=== PATIENT | male | born 1945 | race Caucasian/White ===

== ENCOUNTER 2018-10-13 09:24 | Day surgery (SDC) | payer MEDICARE, BC, SELFPAY ==
[2018-10-13] VITALS (8 sets, daily range): BP systolic 91–153; BP diastolic 51–83; PULSE 60–74; RESP 10–16; TEMP 36.4–36.8; O2SAT 94–98; BMI 30.2
--- NOTE | 2018-10-13 | PATH_ITS ---
[facility] Accession Number: [id number] . 01 Material submitted: . PART A: colon - ASCENDING COLON POLYP PART B: colon - TRANSVERSE COLON POLYP PART C: sigmoid colon - SIGMOID POLYP . 02 Diagnosis: A. Ascending Colon, Polyp, Biopsy: Tubular adenoma. . B. Transverse Colon, Polyp, Biopsy: Tubular adenoma. . C. Sigmoid Colon, Polyp, Biopsy: Tubular adenoma. [facility]/10/14/2018 . 02 Electronically signed: . Ronda Mendenhall MD, Pathologist NPI- [id number] . 01 Gross description: . Part A: ASCENDING COLON POLYP: Received in formalin is 1 fragment(s) of zavala, soft tissue measuring 0.3 x 0.2 x 0.2 cm which is entirely submitted and submitted entirely in 1 cassette(s) Part B: TRANSVERSE COLON POLYP: Received in formalin is 1 fragment(s) of zavala, soft tissue measuring 0.3 x 0.2 x 0.1 cm which is entirely submitted and submitted entirely in 1 cassette(s) Part C: SIGMOID POLYP: Received in formalin is 1 fragment(s) of zavala, soft tissue measuring 0.3 x 0.2 x 0.2 cm which is entirely submitted and submitted entirely in 1 cassette(s) /[facility] /[facility] . 02 Pathologist provided ICD-10: D12.2, D12.3, D12.5 . 02 CPT . 419501, 815968, [id number] Performed at: 01 [facility] [address], [place], [place] [id number] MD Trino Jones MD Phone: [phone] Performed at: [address] [facility] [id number], [place] [id number] MD Ronda Mendenhall MD Phone: [phone]
--- NOTE | 2018-10-13 07:49 | PM.HP.1 ---
History of Present Illness Date Patient Seen: 10/13/18 Chief complaint: [id number] Narrative: 73-year-old male here for colon cancer screening. Last colonoscopy 2008 which was normal per PCP notes. He has no active GI symptoms at present Patient History Social History household members: spouse Meds Home Medications Medication Instructions Recorded Confirmed Type aspirin 650 mg PO Q4-6H PRN 10/13/18 10/13/18 History Allergies Allergy/AdvReac Type Severity Reaction Status Date / Time No Known Allergies Allergy Uncoded 06/17/17 12:05 Exam Narrative Exam Narrative: General: Patient is overweight, not in apparent distress Cardiovascular: Regular rate and rhythm, no murmurs, rubs, or gallops; no evidence of edema; no palpable abdominal aortic aneurysm Gastrointestinal: Normoactive bowel sounds, soft, nontender, nondistended, no rebound tenderness, no hepatosplenomegaly, no evidence of hernia Assessment & Plan Assessment & Plan narrative: 73-year-old male here for repeat colon cancer screening. No alarm symptoms at present Regarding the procedure(s), the risks and potential complications, benefits, and alternatives (including not doing the procedure) were discussed with the patient. The risks include but are not limited to bleeding, splenic injury, infection, perforation which may require surgical intervention, missed lesions, and adverse reactions to sedative medicines. After a question and answer period, the patient agreed to proceed with the procedure(s) and gives informed consent.
[2018-10-13] MEDS: SODIUM CHLORIDE 0.9% 1,000 ML 70 ML IV (09:56)
--- NOTE | 2018-10-13 10:48 | PM.OP.ENDO ---
Operative Date/Time/Diagnoses Date of procedure: 10/13/18 Procedure Notes Procedure in detail: Surgeon: Ángel Dominguez MD Procedure: Colonoscopy with polypectomy Preoperative diagnosis: Colon cancer screening Postoperative diagnosis: Colon polyps x3 status post polypectomy; descending and sigmoid diverticulosis; grade 2 internal hemorrhoids Medications: Conscious sedation using 4 mg IV of Midazolam and 100 mcg IV of Fentanyl Preanesthesia Assessment An H and P was performed/updated and the Px?s ASA class is 2. The procedure was discussed in detail with the patient. The potential risks and complications including infection, bleeding, missed lesions, perforation, need for surgery in case of perforation, prolonged hospital stay, and were explained. A brief question and answer period was allotted and once all questions were answered, informed consent was obtained. The patient was brought back to the procedure room and placed on standard monitoring. The patient?s vital signs were monitored continuously throughout the entire procedure. Prior to starting, a timeout was performed to confirm the patient?s identity, allergies, medications, and procedure. Procedure in detail The patient was placed in left lateral decubitus position and once adequate sedation was obtained a OMA was performed. Perianal exam revealed skin tags. The digital rectal examination did not reveal any palpable lesions. The tip of the colonoscope was placed in the anal canal and advanced without difficulty all the way to the cecum which was identified by the appendiceal orifice and the ileocecal valve. Careful examination of all zimmer of the colon was performed with irrigation of any residual stool. In the ascending colon, there was note of a 5 mm sessile polyp which was removed by means of cold snare. Resection and retrieval was complete with minimal bleeding. In the transverse colon, there was note of a 2 mm sessile polyp which was removed by means of cold Jumbo forceps. Resection and retrieval was complete with minimal bleeding. In the sigmoid colon, there is note of a 3 mm sessile polyp which was removed by means of cold Jumbo forceps. Resection retrieval was complete with minimal bleeding. There was note of multiple medium-sized diverticula in the descending and sigmoid colon. Retroflexion was performed in the rectum which revealed grade 2 internal hemorrhoids The patient tolerated the procedure well and will be brought back to the recovery area to be discharged once criteria are met. The prep was judged to be good and adequate to identify polyps less than 5 mm. The withdrawal time was 8 minutes. The total physician intraservice time was 14 minutes. Complications There were no complications and estimated blood loss was minimal. Recommendations: Resume previous diet Continue outPx medications Follow up pathology results Repeat colonoscopy in 3 or 5 years depending on pathology results An emergency contact number was given to the patient for any complications related to the procedure
[2018-10-13] MEDS: fentaNYL 250 MCG/5 ML INJ IV (10:53)
[2018-10-13] MEDS: MIDAZOLAM 5 MG/5 ML VIAL IV (10:53)
--- NOTE | 2018-10-13 11:40 | SUR.PHASEII ---
To OPD, HOB elevated, tolerating juice well, denies nausea/discomfort. to bedside. Denies being light-headed.
== END 2018-10-13 12:00 | disposition home or self-care (01) ==
LOC: ENDO 09:29
PROVIDERS: PCP Internal Medicine; Visit Provider Internal Medicine Gastroenterology
PROC: 0DJD8ZZ Inspection of Lower Intestinal Tract, Via Natural or Artificial Opening Endoscopic (ICD-10-PCS; CPT 45378; principal; 2018-10-13 10:30)
DX: Z12.11 Encounter for screening for malignant neoplasm of colon (principal); D12.2 Benign neoplasm of ascending colon; D12.3 Benign neoplasm of transverse colon; D12.5 Benign neoplasm of sigmoid colon; K57.30 Diverticulosis of large intestine without perforation or abscess without bleeding; K64.1 Second degree hemorrhoids
CPT/HCPCS: 45385; 45380; 88305; J2250; J3010

== ENCOUNTER → 2018-10-25 10:59 | Outpatient (CLI) | payer MEDICARE, BC, SELFPAY ==
[2018-10-25 12:18] LABS: Aspartate Aminotransferase 39 IU/L (17-59); Blood Urea Nitrogen 13 mg/dL (9-20); Calcium 9.4 mg/dL (8.4-10.2); Carbon Dioxide 30 mmol/L (22-32); Chloride 102 mmol/L (98-107); Cholesterol 204 mg/dL (140-199); Estimated Glomerular Filt Rate > 60.0 mL/min (>60); Glucose 100 mg/dL (80-110); HDL Cholesterol 48 mg/dL (40-60); HEMOLYSIS < 15 (0-50); LDL Cholesterol Calculated 129 mg/dL (<100); Potassium 4.9 mmol/L (3.4-5.1); Sodium 141 mmol/L (137-145); Triglycerides 134 mg/dL (35-150)
[2018-10-25 12:48] LABS: Prostate Specific Antigen Scrn 0.231 ng/mL (0.1-4.0)
== END ==
PROVIDERS: PCP Internal Medicine; Visit Provider Internal Medicine
DX: I10 Essential (primary) hypertension (principal); N40.1 Benign prostatic hyperplasia with lower urinary tract symptoms; Z12.5 Encounter for screening for malignant neoplasm of prostate
CPT/HCPCS: 36415; 80048; 80061; 84450; G0103

== ENCOUNTER 2019-02-08 09:18 | Day surgery (SDC) | payer MEDICARE, BC, SELFPAY ==
[2019-02-08 10:17] VITALS: BP 127/82; PULSE 70; RESP 16; TEMP 36.2; O2SAT 99; BMI 29.7
[2019-02-08] MEDS: PROPARACAINE 0.5% OPHTH SOL 2 DROPS EYE-OP (10:18)
[2019-02-08] MEDS: CATARACT EYE COMPOUND (10 DROPS/SYRINGE) 3 DROPS EYE-OP (10:28)
--- NOTE | 2019-02-08 11:19 | PM.PREOP ---
Pre-operative Note Interval Note History & Physical reviewed/Exam performed by Physician: No Changes to H&P: No
--- NOTE | 2019-02-08 11:19 | PM.OP.1 ---
Operative Date/Time/Diagnoses Pre-op diagnosis: Nuclear Cataract Left eye Post-op diagnosis: same Procedure & Clinicians Surgeon: Alberto Clark Anesthesia Type: MAC +/- and Sedation Operative Notes Procedure in detail: Patient brought to the operating suite. Tetracaine drops placed in the left eye. Patient was prepped and draped in sterile manner. Wire lid speculum was placed in the eye. Betadine drops were placed on the eye. This was irrigated. Lidocaine jelly was placed on the eye. A paracentesis port was created with a side-port blade. 0.1 mL 1% preservative free lidocaine was injected into the anterior chamber. The anterior chamber was deepened with viscoelastic. 2.6 mm keratome was used to create a temporal clear corneal incision. Cystotome and Utrata forceps were used to create continuous tear capsulorrhexis. Balanced salt solution was used to hydro dissect the nucleus. The phacoemulsification handpiece was inserted and the nucleus was removed using the stop and chop technique. The irrigation aspiration handpiece was inserted and the remaining cortex was removed. Anterior chamber was deepened with viscoelastic. An Sarmiento ZCB00 intraocular lens with a power of 14.0 was injected into the capsular bag. Irrigation aspiration handpiece was inserted and the remaining viscoelastic was removed. Incision was hydrated with balanced salt solution and found to be leak free with pressure with Weck-Lesley sponges. 0.1 mL Vigamox injected anterior chamber. 0.3 mL Kenalog 10 mg was injected subconjunctivally. Lid speculum was removed. The patient left the operating room in excellent condition. Complications: none Post-operative Condition: stable Disposition: same day surgery
[2019-02-08] MEDS: PHENYLEPHRINE/LIDOCAINE VIAL (OR) 0.2 ML EYE-OP (11:34)
[2019-02-08] MEDS: CHONDROIDTIN/SOD HYALURONATE 1.05 ML SYRINGE INTRAOCULA (11:35)
[2019-02-08] MEDS: TRIAMCINOLONE 50 MG/5 ML VIAL INJ (11:35)
[2019-02-08] MEDS: LIDOCAINE JELLY 2% 5 ML 1 APPLIC TOP (11:35)
[2019-02-08] MEDS: MOXIFLOXACIN INJ 5 MG/ML VIAL EYE-OP (11:35)
[2019-02-08] MEDS: TETRACAINE 0.5% OPHTH DROPS 4 ML 2 DROPS EYE-OP (11:36)
[2019-02-08] MEDS: BALANCED SALT IRRIG SOLN NO.2 500 ML, EPINEPHrine 1 MG IRR (11:36)
[2019-02-08 11:54] VITALS: BP 126/84; PULSE 70; RESP 15; TEMP 36.3; O2SAT 96
== END 2019-02-08 12:05 | disposition home or self-care (01) ==
PROVIDERS: PCP Internal Medicine; Visit Provider Ophthalmology
PROC: (CPT 66984; principal; 2019-02-08 11:15)
DX: H25.12 Age-related nuclear cataract, left eye (principal); I10 Essential (primary) hypertension
CPT/HCPCS: 66984; J0171; J2250; J3301

== ENCOUNTER 2019-02-22 08:29 | Day surgery (SDC) | payer MEDICARE, BC, SELFPAY ==
[2019-02-22 09:01] VITALS: BP 148/87; PULSE 68; RESP 15; TEMP 36.6; O2SAT 99; BMI 29.5
[2019-02-22] MEDS: PROPARACAINE 0.5% OPHTH SOL 2 DROPS EYE-OP (09:11)
[2019-02-22] MEDS: CATARACT EYE COMPOUND (10 DROPS/SYRINGE) 3 DROPS EYE-OP (09:12)
--- NOTE | 2019-02-22 09:47 | PM.PREOP ---
Pre-operative Note Interval Note History & Physical reviewed/Exam performed by Physician: No Changes to H&P: No
--- NOTE | 2019-02-22 09:47 | PM.OP.1 ---
Operative Date/Time/Diagnoses Pre-op diagnosis: Nuclear cataract right eye Procedure & Clinicians Procedure: Cataract Surgery Same procedure as scheduled: Yes Surgeon: Alberto Clark Anesthesia Type: MAC +/- and Sedation Operative Notes Procedure in detail: Patient brought to the operating suite. Tetracaine drops placed in the right eye. Patient was prepped and draped in sterile manner. Wire lid speculum was placed in the eye. Betadine drops were placed on the eye. This was irrigated. Lidocaine jelly was placed on the eye. A paracentesis port was created with a side-port blade. 0.1 mL 1% preservative free lidocaine was injected into the anterior chamber. The anterior chamber was deepened with viscoelastic. 2.6 mm keratome was used to create a temporal clear corneal incision. Cystotome and Utrata forceps were used to create continuous tear capsulorrhexis. Balanced salt solution was used to hydro dissect the nucleus. The phacoemulsification handpiece was inserted and the nucleus was removed using the stop and chop technique. The irrigation aspiration handpiece was inserted and the remaining cortex was removed. Anterior chamber was deepened with viscoelastic. An Sarmiento ZCB00 intraocular lens with a power of 15.0 was injected into the capsular bag. Irrigation aspiration handpiece was inserted and the remaining viscoelastic was removed. Incision was hydrated with balanced salt solution and found to be leak free with pressure with Weck-Lesley sponges. 0.1 mL Vigamox injected anterior chamber. 0.3 mL Kenalog 10 mg was injected subconjunctivally. Lid speculum was removed. The patient left the operating room in excellent condition. Complications: none Post-operative Condition: stable Disposition: same day surgery
[2019-02-22] MEDS: PHENYLEPHRINE/LIDOCAINE VIAL (OR) 0.2 ML EYE-OP (10:00)
[2019-02-22] MEDS: LIDOCAINE JELLY 2% 5 ML 1 APPLIC TOP (10:00)
[2019-02-22] MEDS: TRIAMCINOLONE 50 MG/5 ML VIAL INJ (10:00)
[2019-02-22] MEDS: MOXIFLOXACIN INJ 5 MG/ML VIAL EYE-OP (10:00)
[2019-02-22] MEDS: TETRACAINE 0.5% OPHTH DROPS 4 ML 2 DROPS EYE-OP (10:01)
[2019-02-22] MEDS: CHONDROIDTIN/SOD HYALURONATE 1.05 ML SYRINGE INTRAOCULA (10:01)
[2019-02-22] MEDS: BALANCED SALT IRRIG SOLN NO.2 500 ML, EPINEPHrine 1 MG IRR (10:01)
[2019-02-22 10:20] VITALS: BP 141/81; PULSE 70; RESP 18; TEMP 36.6; O2SAT 98
== END 2019-02-22 10:29 | disposition home or self-care (01) ==
PROVIDERS: PCP Internal Medicine; Visit Provider Ophthalmology
PROC: (CPT 66984; principal; 2019-02-22 10:15)
DX: H25.11 Age-related nuclear cataract, right eye (principal); I10 Essential (primary) hypertension
CPT/HCPCS: 66984; J0171; J2250; J3301

== ENCOUNTER → 2020-04-03 14:39 | Outpatient (CLI) | payer MEDICARE, BC, SELFPAY ==
[2020-04-03] MEDS: COVID-19 VACC #1, MRNA(MOD) 100 MCG/0.5 ML VIAL IM (14:48)
== END ==
PROVIDERS: PCP Internal Medicine; Visit Provider Internal Medicine
DX: Z23 Encounter for immunization (principal)
CPT/HCPCS: 0011A; 91301

== ENCOUNTER → 2020-05-01 14:57 | Outpatient (CLI) | payer MEDICARE, BC, SELFPAY ==
[2020-05-01] MEDS: COVID-19 VACC #2, MRNA(MOD) 100 MCG/0.5 ML VIAL IM (15:06)
== END ==
PROVIDERS: PCP Internal Medicine; Visit Provider Internal Medicine
DX: Z23 Encounter for immunization (principal)
CPT/HCPCS: 0012A; 91301

== ENCOUNTER → 2020-09-20 12:37 | Outpatient (CLI) | payer MEDICARE, BC, SELFPAY ==
[2020-09-20 16:21] LABS: Prostate Specific Antigen 0.278 ng/mL (0.10-4.00)
== END ==
PROVIDERS: PCP Internal Medicine; Referring Provider Specialist; Visit Provider Specialist
DX: R30.0 Dysuria (principal); N40.1 Benign prostatic hyperplasia with lower urinary tract symptoms
CPT/HCPCS: 36415; 84153

== ENCOUNTER → 2021-05-24 10:47 | Outpatient (CLI) | payer MEDICARE, BC, SELFPAY ==
[2021-05-24 11:48] LABS: COVID19 -Nasal RAPID Negative (Negative)
--- NOTE | 2021-05-29 10:33 | PM.PFT.1 ---
Pulmonary Function Test Referral & Results Date Patient Seen: 05/24/21 Requesting provider: Wandy Barr Results: The spirometry demonstrates an FVC of 3.78 L which is 92% of predicted. The FEV1 was measured at 2.94 L which is 99% of predicted. The FEV1/FVC ratio was 78 which is 106% of predicted. Following the administration of bronchodilator there was a 52% improvement in FEF 25-75% Lung volumes show an SVC of 3.80 L which is 87% of predicted. The diffusing capacity was measured at 30.87 which is 99% of predicted. The maximum voluntary ventilation was minimally reduced Interpretation: This study demonstrates normal pulmonary function. The maybe a slight reduction maximum voluntary ventilation which in the absence of other abnormalities might suggest the presence of neuromuscular disease Clinical correlation suggested Charges Tests/bronchodilator: Complete PFT: with bronchodilator Tests: Yes Diffusing capacity
== END ==
PROVIDERS: PCP Internal Medicine; Referring Provider Internal Medicine Cardiovascular Disease; Visit Provider Internal Medicine Cardiovascular Disease
DX: R06.02 Shortness of breath (principal)
CPT/HCPCS: 87635; 94060; 94726; 94729; C9803

== ENCOUNTER → 2021-05-29 09:24 | Outpatient (CLI) | payer MEDICARE, BC, SELFPAY ==
[2021-05-29 12:08] LABS: COVID19 -Nasal RAPID Negative (Negative)
== END ==
PROVIDERS: PCP Internal Medicine; Visit Provider Nurse Practitioner Family
DX: Z20.822 Contact with and (suspected) exposure to COVID-19 (principal)
CPT/HCPCS: 87635; C9803

== ENCOUNTER → 2021-05-31 08:10 | Outpatient (CLI) | payer MEDICARE, BC, SELFPAY ==
--- NOTE | 2021-05-31 | DI.ECHO.S_ITS ---
[facility] +---------+ : : [address] : : : : [id number] : : : : Phone: [phone]+ Echocardiogram Report + + :Name: DAIRN CRONIN Study Date: 05/31/2021 Height: 70 in : :[facility] ReadingLocation: Weight: 207 lb : : Gender: Male BSA: 2.1 m2 : :: 1945 Age: 76 yrs BP: 144/88 mmHg: :Reason For Study: Murmur, Chest Pain : :Ordering Physician: Wandy : :Norma Barr Performed By: Parul Noriega : + + Interpretation Summary 1) Normal left ventricular size and thickness with low normal systolic function (EF 50-55%). 2) Inferolateral wall is hypokinetic. Endothelial border of the anterolateral wall is not well visualized but it may also be hypokinetic. 3) Normal right ventricular size and function. 4) Mild aortic stenosis present (valve area 1.7cm2, mean gradient 9mmHg). 5) No prior Echo available for comparison. Procedure: A two-dimensional transthoracic echocardiogram with color flow and Doppler was performed. The study quality was technically adequate. There is no prior echocardiogram noted for this patient. The patient was in normal sinus rhythm during the exam. Left Ventricle: The left ventricle is normal in size and wall thickness. Proximal septal thickening is noted. The ejection fraction is estimated to be 50-55%. Inferolateral wall is hypokinetic. Endothelial border of the anterolateral wall is not well visualized but it may also be hypokinetic. Diastolic parameters suggest a relaxation abnormality of the left ventricle, consistent with probable normal filling pressures. Right Ventricle: The right ventricle is normal in size and function. Atria: The left atrium is moderately dilated. Right atrial size is normal. There is no Doppler evidence for an interatrial shunt. Mitral Valve: There is mild to moderate mitral annular calcification. There is mild mitral regurgitation. Aortic Valve: There is moderate aortic valve sclerosis. The aortic valve is not well visualized. The peak aortic velocity is 1.9 m/sec. The aortic valve mean gradient is 9 mmHg. The calculated aortic valve area is 1.7 cm2. There is mild aortic stenosis. No aortic regurgitation is present. Tricuspid Valve: The tricuspid valve leaflets are thin and pliable. There is trace tricuspid regurgitation. The right ventricular systolic pressure is estimated to be at least 25 mmHg based on an estimated right atrial pressure of 3 mm Hg. Pulmonic Valve: The pulmonic valve is not well seen, but is grossly normal. Great Vessels: The aortic root is normal size. The ascending aorta is at the upper limits of normal in size. The aortic arch is normal in size. The IVC is of normal diameter and collapses greater than 50% with a sniff. This suggests a low right atrial pressure of 3 mm Hg. Pericardium/ Pleura There is no pericardial effusion. There is no pleural effusion. MMode/2D Measurements & Calculations LVIDd: 4.9 cm LVOT diam: 2.0 cm LVIDs: 3.0 cm Ao root diam: 3.0 cm FS: 38.6 % asc Aorta Diam: 3.6 cm EPSS: 0.16 cm Ao Arch Diam (Prox Trans): 2.5 cm IVSd: 0.93 cm LVPWd: 0.82 cm LV rivera. diameter/BSA (cm/m^2): 2.3 LV sys. diameter/BSA (cm/m^2): 1.4 LA A2 area: 22.7 cm2 RA long axis: 4.7 cm LA A4 area: 22.0 cm2 RA area: 14.7 cm2 LA length (vol): 5.5 cm RA vol: 38.6 ml LA vol: 76.6 ml RA : 18.2 ml/m2 LA vol index: 36.1 ml/m2 IVC diam: 1.1 cm RVD1 (basal): 3.9 cm TAPSE: 2.7 cm Doppler Measurements & Calculations Ao V2 max: 191.7 cm/sec LVOT Max Valentino: 108.4 cm/sec Ao V2 mean: 144.6 cm/sec LV V1 max P.7 mmHg Ao max P.7 mmHg LV V1 VTI: 23.3 cm Ao mean P.9 mmHg SIDDHARTHA(I,D): 1.7 cm2 Ao V2 VTI: 43.3 cm SIDDHARTHA(V,D): 1.8 cm2 sev ratio: 0.54 SIDDHARTHA indexed to BSA (cm^2/m^2): 0.81 MV E max valentino: 61.7 cm/sec TR max valentino: 234.1 cm/sec MV A max valentino: 84.5 cm/sec TR max P.9 mmHg MV E/A: 0.73 PA V2 max: 69.1 cm/sec Med Peak E' Valentino: 5.9 cm/sec PA V2 mean: 48.4 cm/sec E/E' med: 10.5 PA mean P.0 mmHg Lat Peak E' Valentino: 5.9 cm/sec PA pr(Accel): 40.5 mmHg E/E' lat: 10.5 E/e' average: 10.5 MV dec time: 0.26 sec MR PISA: 1.2 cm2 SV(LVOT): 74.6 ml MR flow rate: 45.8 cm3/sec MR PISA radius: 0.44 cm Reading Physician:12:52 PM
--- NOTE | 2021-05-31 18:45 | DI.NM.S_ITS ---
DATE OF SERVICE: 05/31/2021 PROCEDURE PERFORMED: Exercise treadmill stress test without imaging. ORDERING PROVIDER: Dr. Steve Barr. INDICATIONS: The patient is a 76-year-old male with recent exertional dyspnea and chest pressure. FINDINGS: 1. The patient was able to exercise for 6 minutes, 21 seconds on a standard Gio protocol, suggesting average exercise capacity with an REYNA of -3%, achieving 7.0 METs. 2. He had a normal heart rate response to exercise, achieving a maximum heart rate of 144 BPM (99% of his predicted maximum). He had a mild hypertensive response to exercise with a resting blood pressure of 150/88, increasing to a maximum of 208/80. 3. He had no chest discomfort or other anginal symptom although developed mild lightheadedness at peak exercise with a normal blood pressure. 4. His resting ECG shows sinus rhythm with normal ST segments. There are no significant ST-segment shifts or arrhythmias with stress although he developed occasional isolated PACs in recovery. IMPRESSION: 1. Normal exercise treadmill stress test for ischemia. 2. Average exercise capacity without angina or arrhythmias, except for occasional PACs in recovery. 3. He had a mild hypertensive blood pressure response to exercise with peak blood pressure of 208/80 with associated mild lightheadedness. AnniaGarthhoney - ANNA/jason/jose doc#: [id number]/job#: [id number] dd: 05/31/2021 17:04:00 dt: 05/31/2021 18:24:00 DICTATING MD/COPIES TO: Yohan Zimmer MD; Wandy Barr MD COPIES MNE: JOHANNA;
== END ==
PROVIDERS: PCP Internal Medicine; Referring Provider Internal Medicine Cardiovascular Disease; Visit Provider Internal Medicine Cardiovascular Disease
DX: R01.1 Cardiac murmur, unspecified (principal); I08.0 Rheumatic disorders of both mitral and aortic valves; R07.9 Chest pain, unspecified
CPT/HCPCS: 93017; 93306

== ENCOUNTER → 2021-07-24 09:24 | Outpatient (CLI) | payer MEDICARE, BC, SELFPAY ==
[2021-07-24 12:44] LABS: Alanine Aminotransferase 29 IU/L (<50); Albumin 4.4 g/dL (3.5-5.0); Albumin Globulin Ratio 1.5 (1.0-2.8); Alkaline Phosphatase 53 U/L (38-126); Aspartate Aminotransferase 41 IU/L (17-59); BUN Creatinine Ratio 13.9 (6-22); Bilirubin Total 0.7 mg/dL (0.2-1.3); Blood Urea Nitrogen 14 mg/dL (9-20); Calcium 8.9 mg/dL (8.4-10.2); Carbon Dioxide 31 mmol/L (22-32); Chloride 103 mmol/L (98-107); Cholesterol 140 mg/dL (140-199); Estimated Glomerular Filt Rate > 60 mL/min (>60); Glucose 91 mg/dL (80-110); HDL Cholesterol 48 mg/dL (40-60); HEMOLYSIS < 15 (0-50); LDL Cholesterol Calculated 65 mg/dL (<100); Potassium 4.4 mmol/L (3.4-5.1); Sodium 140 mmol/L (137-145); Total Protein 7.4 g/dL (6.3-8.2); Triglycerides 137 mg/dL (35-150)
== END ==
PROVIDERS: PCP Internal Medicine; Referring Provider Internal Medicine Cardiovascular Disease; Visit Provider Internal Medicine Cardiovascular Disease
DX: E78.5 Hyperlipidemia, unspecified (principal)
CPT/HCPCS: 36415; 80053; 80061

== ENCOUNTER → 2021-09-12 14:07 | Outpatient (CLI) | payer MEDICARE, BC, SELFPAY ==
[2021-09-13 04:04] LABS: Prostate Specific Antigen 0.243 ng/mL (0.10-4.00)
== END ==
PROVIDERS: PCP Internal Medicine; Referring Provider Specialist; Visit Provider Specialist
DX: R97.20 Elevated prostate specific antigen [PSA] (principal)
CPT/HCPCS: 36415; 84153

== ENCOUNTER → 2021-11-18 10:41 | Outpatient (CLI) | payer MEDICARE, BC, SELFPAY ==
[2021-11-18 11:24] LABS: COVID19 -Nasal RAPID Negative (Negative)
--- NOTE | 2021-11-18 17:56 | DI.NM.S_ITS ---
DATE OF SERVICE: 11/18/2021 PROCEDURE PERFORMED: Exercise perfusion study. INDICATION: Dyspnea, chest discomfort, hyperlipidemia, aortic stenosis. RADIOPHARMACEUTICAL: 25.0 millicurie technetium-99m Myoview IV was injected at stress and 12.2 millicurie technetium-99m Myoview IV was injected at rest. CARDIAC STRESS: The patient underwent exercise perfusion study under the supervision of an attending staff. The patient walked on Gio protocol for 6 minutes and 02 seconds, achieved 100 percent target heart rate. Baseline blood pressure 134/84 mmHg. Peak blood pressure 210/104 mmHg, suggestive of hypertensive blood pressure response. REYNA positive 2 percent. 7 METs of workload. Baseline rhythm was sinus. During stress, there were no convincing ischemic changes seen. Occasional PVCs. No chest discomfort. Had some shortness of breath. RAW DATA: There is increased subdiaphragmatic activity. GATED STUDY: Resting LV ejection fraction 68 and stress LV ejection fraction 70 percent. Resting end-diastolic volume 102 mL. TID ratio 0.72, which is within normal limits. Lung/heart ratio 0.27, which is within normal limits. MYOCARDIAL PERFUSION SCAN: Stress supine, resting supine and stress prone images were compared to each other. Stress supine and resting supine images revealed mild to moderate size, mildly decreased perfusion of inferior wall, inferoseptum, as well as inferoapex which got completely resolved during stress prone images, suggestive of diaphragmatic tissue attenuation artifact. CONCLUSION: This is a normal myocardial perfusion study with evidence of diaphragmatic tissue attenuation artifact, which got resolved during stress prone images. Stress prone images revealed normal myocardial perfusion. Diminished exercise tolerance. Hypertensive blood pressure response. Preserved left ventricular function. No ischemic anginal discomfort or electrocardiographic changes or significant arrhythmias. Overall low-risk myocardial perfusion scan. MikkiGarth ryanhoney - ROMMEL/jason/jose doc#: [id number]/job#: [id number] dd: 11/18/2021 17:05:00 dt: 11/18/2021 17:43:00 DICTATING MD/COPIES TO: Phoenix Bhagat MD COPIES MNE: HANNA;
== END ==
PROVIDERS: PCP Internal Medicine; Referring Provider Internal Medicine Cardiovascular Disease; Visit Provider Internal Medicine Cardiovascular Disease
DX: R06.00 Dyspnea, unspecified (principal); Z20.822 Contact with and (suspected) exposure to COVID-19
CPT/HCPCS: 78452; 87635; 93017; A9502

== ENCOUNTER → 2021-12-05 09:05 | Outpatient (CLI) | payer MEDICARE, BC, SELFPAY ==
[2021-12-05 09:42] LABS: COVID19 -Nasal RAPID Negative (Negative)
== END ==
PROVIDERS: PCP Internal Medicine; Visit Provider Surgery
DX: Z20.822 Contact with and (suspected) exposure to COVID-19 (principal); Z01.812 Encounter for preprocedural laboratory examination
CPT/HCPCS: 87635; C9803

== ENCOUNTER 2021-12-06 08:07 | Day surgery (SDC) | payer MEDICARE, BC, SELFPAY ==
[2021-12-06 08:16] VITALS: BP 157/91; PULSE 83; RESP 16; TEMP 36.4; BMI 28.0
[2021-12-06] MEDS: LACTATED RINGERS 1,000 ML 100 ML IV (08:30)
--- NOTE | 2021-12-06 08:37 | PM.HP.1 ---
History of Present Illness History of Present Illness Chief complaint: [facility] colon cancer screening Narrative: 76-year-old male with obstructive sleep apnea hypertension hyperlipidemia taking an aspirin daily presents with request for screening colonoscopy. His last colonoscopy was in 10/2018 the report was reviewed and he received 4 mg of Versed 100 of fentanyl and 3 polyps diverticula and internal hemorrhoids were seen. Currently he endorses no symptoms of bleeding he endorses occasional constipation but nothing serious. He sometimes rarely has some blood from known hemorrhoids but more often when he is constipated he feels a bulging sensation this always resolves spontaneously and really does not bother. He does not take a fiber supplement on occasion he takes a laxative because of his constipation no one has ever talked to him about fiber being important before. Patient History Medical History Bilateral hydrocele BPH w urinary obs/LUTS Excessive daytime sleepiness HTN (hypertension) Hyperlipidemia, unspecified Obstructive sleep apnea syndrome Skin cancer Surgical History H/O hernia repair Hx of circumcision Hx of vasectomy Family & Social History Social History: household members spouse Tobacco & Substance use: Smoking Status Former smoker alcohol intake current Substance Use Type does not use Meds Home Medications and Allergies Home Medications Medication Instructions Recorded Confirmed Type upzzoygvekwq-vxjbpiyw-yvrmka 1 tab PO DAILY 02/08/19 12/06/21 History tablet (Multivitamin 50 Plus tablet) rosuvastatin 5 mg tablet 5 mg PO DAILY 05/28/21 12/06/21 History aspirin 81 mg chewable tablet 81 mg PO DAILY 12/06/21 12/06/21 History Allergies Allergy/AdvReac Type Severity Reaction Status Date / Time No Known Drug Allergies Allergy Verified 12/06/21 08:03 Exam Vital Signs (past 8 hours): - 12/06/21 08:16 Temperature 97.5 F L Pulse Rate 83 Respiratory Rate 16 Blood Pressure 157/91 H Oxygen Delivery Method Room Air Oxygen Delivery Method Room Air Const General: cooperative, healthy appearing and comfortable HENMT Head: normal to inspection Neck Neck: normal visual inspection Resp Effort & Inspection: normal respiratory effort and able to speak in complete sentences Cardio Rate: regular rate GI Palpation: soft and No tender Assessment & Plan Assessment and plan (1) Screening for colon cancer: Status: Acute (2) Internal hemorrhoids: Status: Acute Plan I I spent about 10 minutes discussing the benefits of fiber for a patient like him. I think he will go ahead and try it. I also discussed the risks benefits and alternatives to screening colonoscopy he understands the risks and would like to proceed Time Spent With Patient Critical Care time: I spent a total of [] minutes of critical care time on this patient's care today; this time is exclusive of procedural time.
[2021-12-06] MEDS: fentaNYL 100 MCG/2 ML INJ IV (08:57)
[2021-12-06] MEDS: MIDAZOLAM 5 MG/5 ML VIAL 4 MG IV (08:57)
[2021-12-06 09:34] VITALS: BP 128/80; PULSE 73; RESP 16; TEMP 36.6; O2SAT 98
[2021-12-06 09:39] VITALS: BP 126/86; PULSE 75; RESP 16; O2SAT 98
[2021-12-06 09:44] VITALS: BP 125/74; PULSE 68; RESP 16; O2SAT 97
[2021-12-06 09:48] VITALS: BP 128/80; PULSE 66; RESP 14; TEMP 36.6; O2SAT 97
--- NOTE | 2021-12-06 10:01 | PM.OP.COLON ---
Procedure & Clinicians Study performed: Colonoscopy Same procedure as scheduled: Yes Surgeon: Tere Goel Procedure Notes Procedure in detail: Patient was taken to the endoscopy suite placed in a left lateral decubitus position a time-out was performed conscious sedation was induced using 4 mg of Versed and 100 of fentanyl in total. Patient was comfortable throughout the procedure. the digital rectal exam was normal the scope was introduced and advanced to the cecum some abdominal pressure was required to enter the cecum. There was a loop in the sigmoid. Upon entry large diverticula were seen throughout the sigmoid and descending colon. Photograph was taken of the appendiceal orifice and withdrawal time was 18 minutes. No additional polyps were seen. A retroflex at the end revealed internal hemorrhoids. Photograph was taken. Patient tolerated procedure well went in good condition to postoperative care unit. Findings: divertiulosis and internal hemorrhoids Specimen(s): none sent Complications: none Impression: Follow-up 10 years. Recommendation daily fiber supplement is very serious for the level of diverticulosis and internal hemorrhoids that the patient has. Post-procedure Recommendations: Colonoscopy in 10 years Disposition: PACU
== END 2021-12-06 09:58 | disposition home or self-care (01) ==
PROVIDERS: PCP Internal Medicine; Referring Provider Surgery; Visit Provider Surgery
PROC: 0DJD8ZZ Inspection of Lower Intestinal Tract, Via Natural or Artificial Opening Endoscopic (ICD-10-PCS; CPT 45378; principal; 2021-12-06 09:15)
DX: Z12.11 Encounter for screening for malignant neoplasm of colon (principal); G47.33 Obstructive sleep apnea (adult) (pediatric); I10 Essential (primary) hypertension; E78.5 Hyperlipidemia, unspecified; Z79.82 Long term (current) use of aspirin; K64.8 Other hemorrhoids; K57.30 Diverticulosis of large intestine without perforation or abscess without bleeding
CPT/HCPCS: G0121; J2250; J3010

== ENCOUNTER → 2022-07-14 10:33 | Outpatient (CLI) | payer MEDICARE, BC, SELFPAY ==
[2022-07-14 11:58] LABS: Add Manual Diff / Slide Review NO; Basophils Absolute Auto 0 /uL (0-100); Basophils Percent Auto 0.7 % (0-2); Eosinophils Absolute Auto 100 /uL (0-450); Eosinophils Percent Auto 1.7 % (2-4); Hemoglobin 14.8 g/dL (13.5-17.5); Lymphocytes Absolute Auto 1500 /uL (1100-4500); Mean Corpuscular HGB Conc 33.7 % (30-36); Mean Corpuscular Hemoglobin 33.4 PG (26-34); Mean Corpuscular Volume 99.2 fL (80-100); Monocytes Absolute Auto 500 /uL (0-900); Neutrophils Absolute Auto 3200 /uL (1500-7000); Neutrophils Percent Auto 59.6 % (50-75); Platelet Count 205 X10^3/uL (150-400); Red Blood Cell Count 4.44 X10^6/uL (4.5-5.9); Red Cell Distribution Width 13.3 % (11.6-14.8); White Blood Cell Count 5.4 X10^3/uL (4.5-11.0)
[2022-07-14 12:14] LABS: BUN Creatinine Ratio 12.8 (6-22); Blood Urea Nitrogen 12 mg/dL (9-20); Calcium 8.8 mg/dL (8.4-10.2); Carbon Dioxide 30 mmol/L (22-32); Chloride 102 mmol/L (98-107); Cholesterol 143 mg/dL (140-199); Estimated Glomerular Filt Rate > 60 mL/min (>60); Glucose 91 mg/dL (80-110); HDL Cholesterol 55 mg/dL (40-60); HEMOLYSIS < 15 (0-50); LDL Cholesterol Calculated 65 mg/dL (<100); Potassium 4.3 mmol/L (3.4-5.1); Sodium 138 mmol/L (137-145); Triglycerides 115 mg/dL (35-150)
== END ==
PROVIDERS: PCP Family Medicine; Referring Provider Internal Medicine Cardiovascular Disease; Visit Provider Internal Medicine Cardiovascular Disease
DX: E78.5 Hyperlipidemia, unspecified (principal); I25.10 Atherosclerotic heart disease of native coronary artery without angina pectoris
CPT/HCPCS: 36415; 80048; 80061; 85025

== ENCOUNTER → 2023-05-13 09:16 | Outpatient (CLI) | payer MEDICARE, BC, SELFPAY ==
--- NOTE | 2023-05-13 | DI.NM.S_ITS ---
PROCEDURE: NM ELIA PERF SPECT REST & STR Rest and exercise myocardial perfusion SPECT with gated imaging and ejection fraction RADIOPHARMACEUTICAL: 12.8 mCi Tc-99m sestamibi IV at rest and 25.4 mCi Tc-99m sestamibi IV at peak exercise. A 8-sof-ijmuvesr was performed. INDICATIONS: Nonrheumatic aortic (valve) stenosis, dyspnea TECHNIQUE: Radiopharmaceutical was injected at peak stress test, and also at rest. SPECT images were obtained. SPECT myocardial perfusion images were displayed in short axis, horizontal long axis, and vertical long axis views. Gated images were reviewed using [employer] software. COMPARISON: None. CARDIAC STRESS: A standard Gio treadmill exercise tolerance test was performed by the patient under the supervision of an attending staff. The patient exercised for 6 minutes and 0 seconds; 6.9 METS; functional aerobic impairment (REYNA) is -3% %. Hemodynamic data: There is normal blood pressure and heart rate response to exercise stress. Patient achieved 99% of maximum predicted heart rate at peak exercise. Maximum blood pressure 188/90. Symptoms: Patient denied chest pain during exercise. EKG: No diagnostic EKG changes of ischemia; no ectopy. FINDINGS: Raw data: There is good myocardial labeling by radiotracer. No significant motion artifacts. Bqsu-cl-wqeey ratio is 0.29 (normal is less than 0.38 for sestamibi tracer, and less than 0.50 for thallium tracer). Left ventricle function: Gated images demonstrate normal left ventricle wall thickening. No segmental wall motion abnormality. No transient ischemic dilation; TID is 0.79 (normal less than 1.3). The left ventricle resting end-diastolic volume is 97 mL. Left ventricle stress ejection fraction is 73%; normal values are above 45%. Myocardial perfusion: There is normal distribution of activity in the left and right ventricular myocardium. No fixed or reversible perfusion defects. IMPRESSION: Low risk study. No evidence of exercise-induced ischemia on ECG or SPECT imaging. Normal LV size and function. Normal hemodynamic response. Fair exercise capacity. Dictated by: Ida Reina D.O. on 05/13/2023 at 16:38 Approved by: Ida Reina D.O. on 05/13/2023 at 16:41
--- NOTE | 2023-05-13 | DI.ECHO.S_ITS ---
[place] [facility]---------+ [facility] +---------+ : : [address] : : : : [id number] : : : : Phone: [phone]+ Echocardiogram Report + + :Name: DARIN CRONIN Study Date: 05/13/2023 Height: 69 in : :[facility] ReadingLocation: Weight: 200 lb : : Gender: Male BSA: 2.1 m2 : :: 1945 Age: 78 yrs BP: 138/87 mmHg: :Reason For Study: AORTIC STENOSIS : :Ordering Physician: FRANSICO, : :HAYLEY Performed By: Claudia Wolf : :Referring: HOMAR BATEMAN : + + Interpretation Summary The ejection fraction is estimated to be 45-50%. Diastolic function could not be accurately assessed due to contradictory data. The left atrium is moderately dilated. The right ventricle is normal in size and function. The right atrium is mildly dilated. There is mild mitral regurgitation. There is mild aortic stenosis. Pulmonary artery pressures cannot be estimated because of the lack of a measurable TR jet velocity but the IVC suggests a CVP of around 3 mmHg. Procedure: A two-dimensional transthoracic echocardiogram with color flow and Doppler was performed. The study quality was technically adequate. Comparison is made with the echocardiogram of 05/31/2021. The patient was in sinus rhythm with heart rates between 65-75 bpm during the exam. Left Ventricle: The left ventricle is normal in size. Left ventricular wall thickness is borderline increased. The ejection fraction is estimated to be 45-50%. There is mild global hypokinesis of the left ventricle. Diastolic function could not be accurately assessed due to contradictory data. Right Ventricle: The right ventricle is normal in size and function. Atria: The left atrium is moderately dilated. The right atrium is mildly dilated. There is no Doppler evidence for an interatrial shunt. Mitral Valve: There is mild to moderate mitral annular calcification. The mitral valve leaflets appear mildly thickened, but open well. There is mild mitral regurgitation. Aortic Valve: The aortic valve is mildly calcified. There is mild aortic stenosis. The peak aortic velocity is 2.0 m/sec. The aortic valve mean gradient is 10 mmHg. The calculated aortic valve area is 1.5 cm2. No aortic regurgitation is present. Tricuspid Valve: The tricuspid valve is normal in structure and function. There is trace tricuspid regurgitation. Pulmonary artery pressures cannot be estimated because of the lack of a measurable TR jet velocity but the IVC suggests a CVP of around 3 mmHg. Pulmonic Valve: The pulmonic valve is not well seen, but is grossly normal. There is no pulmonic valvular regurgitation. Great Vessels: The aortic root is normal size. The dimensions of the ascending aorta are normal. The IVC is of normal diameter and collapses greater than 50% with a sniff. This suggests a low right atrial pressure of 3 mm Hg. Pericardium/ Pleura There is no pericardial effusion. There is no pleural effusion. MMode/2D Measurements & Calculations LVIDd: 4.6 cm LVOT diam: 2.0 cm LVIDs: 3.0 cm Ao root diam: 3.3 cm FS: 35.4 % asc Aorta Diam: 3.4 cm IVSd: 1.1 cm Ao Arch Diam (Prox Trans): 2.4 cm LVPWd: 1.0 cm LV rivera. diameter/BSA (cm/m^2): 2.2 LV sys. diameter/BSA (cm/m^2): 1.4 LA A2 area: 21.1 cm2 RA long axis: 4.9 cm LA A4 area: 17.5 cm2 RA area: 15.3 cm2 LA length (vol): 5.2 cm RA vol: 40.8 ml LA vol: 59.8 ml RA : 19.8 ml/m2 LA vol index: 28.9 ml/m2 IVC diam: 1.4 cm RVD1 (basal): 3.6 cm RVD2 (mid): 2.9 cm TAPSE: 2.1 cm Doppler Measurements & Calculations Ao V2 max: 201.2 cm/sec LVOT Max Valentino: 95.4 cm/sec Ao V2 mean: 144.0 cm/sec LV V1 max P.6 mmHg Ao max P.3 mmHg LV V1 VTI: 20.3 cm Ao mean P.6 mmHg SIDDHARTHA(I,D): 1.6 cm2 Ao V2 VTI: 42.1 cm SIDDHARTHA(V,D): 1.5 cm2 sev ratio: 0.48 SIDDHARTHA indexed to BSA (cm^2/m^2): 0.75 MV E max valentino: 64.9 cm/sec PA V2 max: 97.6 cm/sec MV A max valentino: 88.8 cm/sec PA V2 mean: 75.9 cm/sec MV E/A: 0.73 PA mean P.4 mmHg Med Peak E' Valentino: 7.7 cm/sec PA pr(Accel): 44.7 mmHg E/E' med: 8.4 Lat Peak E' Valentino: 6.1 cm/sec E/E' lat: 10.6 E/e' average: 9.5 MV dec time: 0.23 sec SV(LVOT): 65.6 ml Reading Physician:07:26 PM
== END ==
LOC: ECHO 09:17
PROVIDERS: PCP Family Medicine; Referring Provider Internal Medicine Cardiovascular Disease; Visit Provider Internal Medicine Cardiovascular Disease
DX: R06.09 Other forms of dyspnea (principal); I08.0 Rheumatic disorders of both mitral and aortic valves
CPT/HCPCS: 78452; 93017; 93306; A9502

== ENCOUNTER → 2023-07-16 10:14 | Outpatient (CLI) | payer MEDICARE, BC, SELFPAY ==
[2023-07-16 11:08] LABS: Add Manual Diff / Slide Review NO; Basophils Absolute Auto 0 /uL (0-100); Basophils Percent Auto 0.5 % (0-2); Eosinophils Absolute Auto 100 /uL (0-450); Hematocrit 42.9 % (41-53); Hemoglobin 14.6 g/dL (13.5-17.5); Lymphocytes Absolute Auto 1400 /uL (1100-4500); Lymphocytes Percent Auto 26.7 % (25-40); Mean Corpuscular Volume 99.9 fL (80-100); Monocytes Absolute Auto 600 /uL (0-900); Monocytes Percent Auto 11.4 % (3-14); Neutrophils Absolute Auto 3100 /uL (1500-7000); Neutrophils Percent Auto 59.4 % (50-75); Platelet Count 205 X10^3/uL (150-400); Red Cell Distribution Width 12.8 % (11.6-14.8); White Blood Cell Count 5.2 X10^3/uL (4.5-11.0)
[2023-07-16 11:30] LABS: Alanine Aminotransferase 33 IU/L (<50); Albumin 4.5 g/dL (3.5-5.0); Albumin Globulin Ratio 1.5 (1.0-2.8); Alkaline Phosphatase 60 U/L (38-126); Aspartate Aminotransferase 44 IU/L (17-59); BUN Creatinine Ratio 15.1 (6-22); Blood Urea Nitrogen 13 mg/dL (9-20); Carbon Dioxide 27 mmol/L (22-32); Chloride 104 mmol/L (98-107); Cholesterol 146 mg/dL (140-199); Estimated Glomerular Filt Rate > 60 mL/min (>60); Globulin 3.1 g/dL (1.7-4.1); Glucose 98 mg/dL (80-110); HDL Cholesterol 47 mg/dL (40-60); HEMOLYSIS < 15 (0-50); LDL Cholesterol Calculated 74 mg/dL (<100); Potassium 3.8 mmol/L (3.4-5.1); Sodium 138 mmol/L (137-145); Total Protein 7.6 g/dL (6.3-8.2); Triglycerides 124 mg/dL (35-150)
== END ==
PROVIDERS: PCP Family Medicine; Referring Provider Family Medicine; Visit Provider Family Medicine
DX: Z12.5 Encounter for screening for malignant neoplasm of prostate (principal); E78.5 Hyperlipidemia, unspecified; Z00.00 Encounter for general adult medical examination without abnormal findings; N40.1 Benign prostatic hyperplasia with lower urinary tract symptoms; N13.8 Other obstructive and reflux uropathy; I10 Essential (primary) hypertension
CPT/HCPCS: 36415; 80053; 80061; 85025; G0103

== ENCOUNTER 2023-10-06 15:49 | Emergency (ER) | payer MEDICARE, BC, SELFPAY ==
[2023-10-06 15:54] VITALS: BP 152/83; PULSE 77; RESP 16; TEMP 36.6; O2SAT 97; BMI 29.5
[2023-10-06 18:31] VITALS: BP 163/80; PULSE 66; RESP 16; TEMP 37.1; O2SAT 97
--- NOTE | 2023-10-06 20:19 | DI.RAD.S_ITS ---
PROCEDURE: XR SHOULDER LT MIN 2V INDICATIONS: L SHOULDER/ARM INJURY TECHNIQUE: 3 views of the shoulder were acquired. COMPARISON: None. FINDINGS: Bones: No acute fractures or dislocations. No suspicious bony lesions. Visualized ribs appear intact. Moderate degenerative changes at the acromioclavicular joint. Soft tissues: No suspicious soft tissue calcifications. IMPRESSION: No acute osseous abnormality. If there is continued clinical concern or persistent symptoms, repeat radiographs or cross-sectional imaging (e.g. CT, MRI) may be helpful for further evaluation. Approved by: Luis Alberto Tatum M.D. on 10/06/2023 at 20:54
--- NOTE | 2023-10-06 20:57 | ED_ITS ---
HPI - Extremity Injury (Upper) General Chief Complaint: Extremity Injury, Upper Stated Complaint: lt arm injury Time Seen by Provider: 10/06/23 20:18 Source: patient Mode of arrival: Ambulatory History of Present Illness HPI narrative: 78-year-old male presents for left arm injury. Patient states that he was lifting a heavy suitcase when all of a sudden he felt a pop in his lower arm. States he now has a lump in his lower arm and pain when he tries to move it. Placed in sling by triage nurse. Related Data Home Medications Medication Instructions Recorded Confirmed rosuvastatin 5 mg tablet 5 mg PO DAILY 05/28/21 07/29/23 aspirin 81 mg chewable tablet 81 mg PO DAILY 12/06/21 07/29/23 carvedilol 3.125 mg tablet 3.125 mg PO BID 07/24/23 07/29/23 Allergies Allergy/AdvReac Type Severity Reaction Status Date / Time No Known Drug Allergies Allergy Verified 07/29/23 11:16 Patient History Medical History Benign essential HTN Medicare annual wellness visit, subsequent Mumps Measles Chicken pox Tinnitus (~2009) Cataracts, bilateral (~2018) Hemorrhoid (~1990) Colon polyps (~2018) Melanoma Obstructive sleep apnea syndrome (~2009) Bilateral hydrocele BPH w urinary obs/LUTS Hyperlipidemia, unspecified Skin cancer Surgical History Anesthesia History of cataract removal with insertion of prosthetic lens (~2018) History of hand surgery (~2014) Hx of circumcision Hx of vasectomy H/O hernia repair (~1984) Family History Father Cancer Diabetes mellitus Hyperlipidemia Mother Cancer Brother Cancer Sister Cancer Grandfather Diabetes mellitus Social History household members: spouse Smoking Status: Former smoker alcohol intake: current Smoking Status: Former smoker alcohol intake frequency: holidays/special occasions only Substance Use Type: does not use Exam Initial Vital Signs Initial Vital Signs: Vital Signs Temperature 98 F 10/06/23 15:54 Pulse Rate 77 10/06/23 15:54 Respiratory Rate 16 10/06/23 15:54 Blood Pressure 152/83 H 10/06/23 15:54 Pulse Oximetry 97 10/06/23 15:54 Oxygen Delivery Method Room Air 10/06/23 15:54 Const: Awake, alert, no acute distress, nontoxic appearing MSK: small bulge at bottom of L arm near elbow joint, Full ROM, pain with pronation and supination Skin: Warm, Dry, intact, no rashes Neuro: AO x3, CN II-XII grossly intact, moves all extremities Course Orders Ordered: ED Orders 10/06/23 20:19 XR shoulder LT min 2V Stat Vital Signs Vital signs: Vital Signs - 8 hr 10/06/23 15:54 10/06/23 18:31 Temperature 98 F 98.7 F Pulse Rate 77 66 Respiratory Rate 16 16 Blood Pressure 152/83 H 163/80 H Pulse Oximetry 97 97 Oxygen Delivery Method Room Air Room Air MDM - Extremity Injury (Upper) MDM Narrative Medical decision making narrative: Swelling of biceps after picking up heavy object. Patient does have full range of motion of his arm but it was quite painful and he states it feels weaker than his right arm. Suspect distal biceps tear. Patient placed in sling, referral to Orthopedics provided. Discharge Plan Departure Patient Disposition: Home Clinical Impression: Biceps tendon tear Instructions: DI for Shoulder Tendinopathy Activity Restrictions/Additional Instructions: You likely have a distal biceps tendon injury based on your exam today. Wear t he sling for comfort. You may take Tylenol and ibuprofen as needed for pain. Do not lift any heavy objects with your injured extremity. Follow up with Orthopedic surgery. Prescriptions: No Action rosuvastatin 5 mg tablet 5 mg PO DAILY carvedilol 3.125 mg tablet 3.125 mg PO BID Rx Instructions: must administer with a meal/food aspirin 81 mg tablet,chewable 81 mg PO DAILY Patient Comments: CHEW AND SWALLOW ONE TABLET BY MOUTH ONE TIME DAILY Referrals: Maria Motta MD [Non-Staff] - Dakota Raphael DO [Primary Care Provider] - Stand Alone Forms: Patient Portal/API
[2023-10-06 21:42] VITALS: BP 162/85; PULSE 77; RESP 16; O2SAT 99
== END 2023-10-06 21:42 | disposition home or self-care (01) ==
PROVIDERS: Emergency Provider Emergency Medicine; PCP Family Medicine
DX: M79.622 Pain in left upper arm (principal)
CPT/HCPCS: 73030; 99281; 99283

== ENCOUNTER → 2024-08-03 09:35 | Outpatient (CLI) | payer MEDICARE, BC, SELFPAY ==
[2024-08-03 10:43] LABS: Add Manual Diff / Slide Review NO; Basophils Absolute Auto 0 /uL (0-100); Basophils Percent Auto 0.5 % (0-2); Eosinophils Absolute Auto 100 /uL (0-450); Eosinophils Percent Auto 1.7 % (2-4); Hematocrit 43.8 % (41-53); Lymphocytes Absolute Auto 1300 /uL (1100-4500); Lymphocytes Percent Auto 23.9 % (25-40); Mean Corpuscular HGB Conc 34.2 % (30-36); Mean Corpuscular Hemoglobin 34.1 PG (26-34); Mean Corpuscular Volume 99.7 fL (80-100); Monocytes Absolute Auto 600 /uL (0-900); Monocytes Percent Auto 11.1 % (3-14); Neutrophils Absolute Auto 3500 /uL (1500-7000); Neutrophils Percent Auto 62.8 % (50-75); Platelet Count 215 X10^3/uL (150-400); Red Cell Distribution Width 12.7 % (11.6-14.8); White Blood Cell Count 5.6 X10^3/uL (4.5-11.0)
[2024-08-03 11:10] LABS: Alanine Aminotransferase 29 IU/L (<50); Albumin 4.5 g/dL (3.5-5.0); Albumin Globulin Ratio 1.4 (1.0-2.8); Alkaline Phosphatase 62 U/L (38-126); Aspartate Aminotransferase 45 IU/L (17-59); Bilirubin Total 0.9 mg/dL (0.2-1.3); Blood Urea Nitrogen 16 mg/dL (9-20); Carbon Dioxide 27 mmol/L (22-32); Chloride 102 mmol/L (98-107); Cholesterol 146 mg/dL (140-199); Estimated Glomerular Filt Rate > 60 mL/min (>60); Globulin 3.3 g/dL (1.7-4.1); Glucose 103 mg/dL (70-99); HDL Cholesterol 45 mg/dL (40-60); HEMOLYSIS < 15 (0-50); LDL Cholesterol Calculated 72 mg/dL (<100); Potassium 4.4 mmol/L (3.4-5.1); Sodium 138 mmol/L (137-145); Total Protein 7.8 g/dL (6.3-8.2); Triglycerides 144 mg/dL (35-150)
[2024-08-03 11:39] LABS: Prostate Specific Antigen Scrn 0.252 ng/mL (0.1-4.0)
== END ==
PROVIDERS: PCP Family Medicine; Referring Provider Family Medicine; Visit Provider Family Medicine
DX: E78.5 Hyperlipidemia, unspecified (principal); Z12.5 Encounter for screening for malignant neoplasm of prostate; I10 Essential (primary) hypertension; N40.1 Benign prostatic hyperplasia with lower urinary tract symptoms; N13.8 Other obstructive and reflux uropathy
CPT/HCPCS: 36415; 80053; 80061; 85025; G0103

== ENCOUNTER → 2024-08-12 14:54 | Outpatient (CLI) | payer MEDICARE, BC, SELFPAY ==
--- NOTE | 2024-08-12 14:56 | DI.RAD.S_ITS ---
PROCEDURE: XR SCAPULA RT INDICATIONS: fell in june TECHNIQUE: 2 views of the scapula were acquired. COMPARISON: None. FINDINGS: Bones: No fractures or dislocations. Moderate hypertrophic acromioclavicular arthropathy. No suspicious bony lesions. Visualized ribs appear intact. Soft tissues: Overlying soft tissues appear normal. IMPRESSION: No acute bony abnormality. Degenerative change of the acromioclavicular joint. Dictated by: Drew Carrington M.D. on 08/12/2024 at 23:16 Approved by: Drew Carrington M.D. on 08/12/2024 at 23:17
== END ==
PROVIDERS: PCP Family Medicine; Referring Provider Family Medicine; Visit Provider Family Medicine
DX: S40.011A Contusion of right shoulder, initial encounter (principal); W19.XXXA Unspecified fall, initial encounter
CPT/HCPCS: 73010